=== PATIENT | male | born 1950 | race Caucasian/White ===

== ENCOUNTER 2022-06-23 | Outpatient (REF) | payer MEDICARE, SELFPAY ==
--- NOTE | ~2022-06-23 | XR_ITS ---
EXAMINATION: X-RAY BILATERAL KNEES X-RAY RIGHT KNEE CLINICAL INFORMATION: Knee pain COMPARISON: None TECHNIQUE: AP bilateral knees one view. Right knee 2 views. FINDINGS: Right knee: Right total knee arthroplasty, with usual position and alignment of the arthroplasty components. No findings suggest hardware failure. No acute periprosthetic fracture seen. Chronic ossification medial to the proximal tibia. There is marked lateral subluxation of the patella on the skyline view. No significant effusion. Left knee: Left total knee arthroplasty with usual position and alignment. There is a lucency of the bone/arthroplasty interface along the medial aspect of the femoral component of the prosthesis. This could be postsurgical. No acute fractures seen.. XR/XR knee RT 2V IMPRESSION: Right knee: Right knee arthroplasty without evidence of acute fracture or findings to suggest hardware failure. Marked lateral patellar subluxation. Left knee: Left total knee arthroplasty. Lucency at the bone/arthroplasty interface medially of the femoral component prosthesis, could be postsurgical versus related to etiology such as loosening. Correlate with prior imaging.
--- NOTE | ~2022-06-23 | XR_ITS ---
EXAMINATION: X-RAY BILATERAL KNEES X-RAY RIGHT KNEE CLINICAL INFORMATION: Knee pain COMPARISON: None TECHNIQUE: AP bilateral knees one view. Right knee 2 views. FINDINGS: Right knee: Right total knee arthroplasty, with usual position and alignment of the arthroplasty components. No findings suggest hardware failure. No acute periprosthetic fracture seen. Chronic ossification medial to the proximal tibia. There is marked lateral subluxation of the patella on the skyline view. No significant effusion. Left knee: Left total knee arthroplasty with usual position and alignment. There is a lucency of the bone/arthroplasty interface along the medial aspect of the femoral component of the prosthesis. This could be postsurgical. No acute fractures seen.. XR/XR knee standing BI IMPRESSION: Right knee: Right knee arthroplasty without evidence of acute fracture or findings to suggest hardware failure. Marked lateral patellar subluxation. Left knee: Left total knee arthroplasty. Lucency at the bone/arthroplasty interface medially of the femoral component prosthesis, could be postsurgical versus related to etiology such as loosening. Correlate with prior imaging.
== END 2022-06-23 00:01 | disposition home or self-care (01) ==
LOC: HO.HOSX
PROVIDERS: Visit Provider Orthopaedic Surgery
DX: M25.561 Pain in right knee (principal)
CPT/HCPCS: 73560; 73565

== ENCOUNTER → 2022-08-07 11:07 | Outpatient (BNVA) | payer MEDICARE, SELFPAY | PROVIDERS: PCP Internal Medicine; Visit Provider Physician Assistant | DX: Z01.818 Encounter for other preprocedural examination (principal); Z96.651 Presence of right artificial knee joint | CPT/HCPCS: 99212 ==

== ENCOUNTER 2022-08-12 06:06 | Inpatient (IN) | payer MEDICARE, SELFPAY ==
[2022-08-07 12:23] VITALS: BP 138/80; PULSE 72; RESP 20; O2SAT 95; BMI 35.2
--- NOTE | 2022-08-07 12:40 | HO.ANESPROP2 ---
Documented by User: Usha Solares NP 08/08/22 14:45 HPI - Anesthesia Eval Consult details Narrative: 71yo M for Right Knee Total Revision Medically optmized. PCP discussed with pt's print finisher and ok to proceed. Last pulmo visit 02/2022 - stable with normal PFT PMFSH Active Problems Active Problems: All Active Problems (Updated 08/07/22 @ 12:23 by Regina Hickman RN) History of total right knee replacement (Acute) Past Medical History Medical History Acid reflux Asthma Chronic bronchitis COPD (chronic obstructive pulmonary disease) Depression CALLAHAN (dyspnea on exertion) Exposure to hazardous chemical Glaucoma History of revision of total replacement of right knee joint History of urinary retention Mixed hyperlipidemia Osteoarthritis Parkinsonism Pulmonary fibrosis Urethral carcinoma Family History Family history of problems with anesthesia: No Surgical History Surgical History H/O cataract extraction H/O left knee surgery History of arthroscopy of shoulder History of bowel resection History of cholecystectomy History of pneumonectomy History of thumb surgery History of total left knee replacement History of total right knee replacement S/P partial lobectomy of lung S/P right knee arthroscopy Status post repair of hydrocele History of Problems with Anesthesia: No Social History Social History Are you a primary healthcare administrative assistant to a significant other at home: No Do you presently have visiting nurse or other home services: No Patient Tobacco Use Status: Former Tobacco user Quit Date: 2006 Tobacco use type: Cigarette Second Hand Smoke Exposure: Yes Use of substances other than those prescribed or required for medical reasons: No Have you been hit, kicked, punched, or otherwise hurt by someone within the past year? If so, by whom?: No Are you DNR?: No Advance Directives: No Advance Directives Information Provided: Yes Advance Directives on File: No Recently lost weight without trying: No Eating poorly because of decreased appetite: No Nutrition Risks: No Nutritional Risk Poor oral hygiene: No (Capped teeth) Current occupational status: retired Narrative Narrative: No recent illness. No CP. Rare SOB when >4 mets with physical work Requiring albuterol nebulizer ~2-3 times per month Meds Allergies Allergy/AdvReac Type Severity Reaction Status Date / Time Egg Derived Allergy Fainting Verified 08/07/22 12:10 ibuprofen Allergy hives Verified 08/07/22 12:10 meperidine [From Demerol] AdvReac Hallucinati Verified 08/07/22 12:42 ons Home Medications Medication Instructions Recorded Confirmed Last Taken Type albuterol sulfate 2.5 mg/3 mL 2.5 mg inhalation Q6H PRN Wheezing 06/23/22 08/06/22 08/12/22 History (0.083 %) solution for nebulization alprazolam 0.5 mg tablet 0.25 mg PO DAILY PRN Anxiety 06/23/22 08/07/22 08/11/22 History brinzolamide 1 % eye 1 drp ophthalmic (eye) BID 06/23/22 08/07/22 08/12/22 History drops,suspension (Azopt) desvenlafaxine 50 mg 75 mg PO BEDTIME 06/23/22 08/07/22 08/10/22 History tablet,extended release 24 hr netarsudil 0.02 % eye drops 1 drp ophthalmic (eye) DAILY 06/23/22 08/07/22 08/12/22 History (Rhopressa) omega-3 acid ethyl esters 1 gram 4 cap PO DAILY 06/23/22 08/07/22 08/02/22 History capsule (Lovaza) testosterone cypionate 200 mg/mL 100 mg IM Q2W 06/23/22 08/07/22 08/05/22 History intramuscular oil (Depo-Testosterone) travoprost 0.004 % eye drops 1 drp ophthalmic (eye) DAILY 06/23/22 08/07/22 08/12/22 History (Travatan Z) pantoprazole 40 mg tablet,delayed 40 mg PO BEDTIME 08/07/22 08/07/22 08/10/22 History release Exam Exam Date and Time: August 07, 2022 1240 Height,Weight and Vital Signs: Height 6 ft Weight 117.934 kg Last Vital Signs Pulse 72 08/07/22 12:23 Resp 20 08/07/22 12:23 BP 138/80 08/07/22 12:23 Pulse Ox 95 08/07/22 12:23 O2 Del Method 08/07/22 12:23 Pertinent Lab Results Pertinent Lab Results: CBC and BMP 07/2022 WNL Narrative Narrative: EKG 07/2022 NSR @ 78 Airway Mallampati Class: III TM Dist: >3cm Neck ROM: Full Loose/Missing/Broken Teeth: No (Capped right front upper, capped left front lower) Heart: RRR Lungs: CTAB Assessment and Plan Assessment Anesthesia Assessment: Anesthesia Plan Discussed and PAT Visit Final Anesthetic Review Family History of Problems with Anesthesia: No History of Problems with Anesthesia: No Documented by User: Kareem Murillo MD 08/12/22 08:59 [facility] Past Medical History Medical History Acid reflux Asthma Chronic bronchitis COPD (chronic obstructive pulmonary disease) Depression CALLAHAN (dyspnea on exertion) Exposure to hazardous chemical Glaucoma History of revision of total replacement of right knee joint History of urinary retention Mixed hyperlipidemia Osteoarthritis Parkinsonism Pulmonary fibrosis Urethral carcinoma Surgical History Surgical History H/O cataract extraction H/O left knee surgery History of arthroscopy of shoulder History of bowel resection History of cholecystectomy History of pneumonectomy History of thumb surgery History of total left knee replacement History of total right knee replacement S/P partial lobectomy of lung S/P right knee arthroscopy Status post repair of hydrocele Social History Social History Are you a primary healthcare administrative assistant to a significant other at home: No Do you presently have visiting nurse or other home services: No Patient Tobacco Use Status: Former Tobacco user Quit Date: 2006 Tobacco use type: Cigarette Second Hand Smoke Exposure: Yes Use of substances other than those prescribed or required for medical reasons: No Have you been hit, kicked, punched, or otherwise hurt by someone within the past year? If so, by whom?: No Are you DNR?: No Advance Directives: No Advance Directives Information Provided: Yes Advance Directives on File: No Recently lost weight without trying: No Eating poorly because of decreased appetite: No Nutrition Risks: No Nutritional Risk Poor oral hygiene: No (Capped teeth) Current occupational status: retired Meds Allergies Allergy/AdvReac Type Severity Reaction Status Date / Time Egg Derived Allergy Fainting Verified 08/07/22 12:10 ibuprofen Allergy hives Verified 08/07/22 12:10 meperidine [From Demerol] AdvReac Hallucinati Verified 08/07/22 12:42 ons Home Medications Medication Instructions Recorded Confirmed Last Taken Type albuterol sulfate 2.5 mg/3 mL 2.5 mg inhalation Q6H PRN Wheezing 06/23/22 08/06/22 08/12/22 History (0.083 %) solution for nebulization alprazolam 0.5 mg tablet 0.25 mg PO DAILY PRN Anxiety 06/23/22 08/07/22 08/11/22 History brinzolamide 1 % eye 1 drp ophthalmic (eye) BID 06/23/22 08/07/22 08/12/22 History drops,suspension (Azopt) desvenlafaxine 50 mg 75 mg PO BEDTIME 06/23/22 08/07/22 08/10/22 History tablet,extended release 24 hr netarsudil 0.02 % eye drops 1 drp ophthalmic (eye) DAILY 06/23/22 08/07/22 08/12/22 History (Rhopressa) omega-3 acid ethyl esters 1 gram 4 cap PO DAILY 06/23/22 08/07/22 08/02/22 History capsule (Lovaza) testosterone cypionate 200 mg/mL 100 mg IM Q2W 06/23/22 08/07/22 08/05/22 History intramuscular oil (Depo-Testosterone) travoprost 0.004 % eye drops 1 drp ophthalmic (eye) DAILY 06/23/22 08/07/22 08/12/22 History (Travatan Z) pantoprazole 40 mg tablet,delayed 40 mg PO BEDTIME 08/07/22 08/07/22 08/10/22 History release Assessment and Plan Final Anesthetic Review NPO: Yes ASA Class: III Final Preanesthetic Review: No Changes in Pt Med Stat, Meds/Allgs Chart Reviewed, Consent Obtained/Reviewed and Anes Risks/Benef Reviewed Patient Risk: Intermediate Procedure Risk: Intermediate Assessment/Block/Sedation in SS: Assess/Block/Sedation-SS Anesthetic Plan Anesthetic Plan: GA, Spinal, Regional Block and Agree w/ Assess. and Plan Disposition: Standard PACU
[2022-08-07 14:49] LABS: MRSA Nasal PCR NEGATIVE (Negative); SA Nasal PCR NEGATIVE (Negative)
[2022-08-12] VITALS (17 sets, daily range): BP systolic 110–154; BP diastolic 54–98; PULSE 67–90; RESP 8–20; TEMP 36.1–36.6; O2SAT 94–100
--- NOTE | ~2022-08-12 | XR_ITS ---
EXAMINATION: XR KNEE, RIGHT CLINICAL INFORMATION: Right total knee arthroplasty COMPARISON: 06/23/2022 TECHNIQUE: Two views of the right knee. XR/XR knee RT 2V FINDINGS AND IMPRESSION: Postoperative soft tissue swelling, soft tissues gas and anterior skin terry in place, status post patellar resurfacing with well-positioned patellar component of the total knee arthroplasty. The previously placed tibial and femoral components are appropriately positioned. No osteolysis or fracture around the hardware. Alignment is anatomic at the patellofemoral and tibiofemoral joints.
--- NOTE | 2022-08-12 06:56 | PC.NURSE ---
right knee psoriasis right knee seen in the office on the Aug they are aware
[2022-08-12 07:46] LABS: COVID-19 Test Negative (Negative); IDNOW Serial# 16C4AD1C
[2022-08-12 07:51] LABS: Hematocrit 52.8 % (42.0-52.0); Hemoglobin 17.8 g/dl (14.0-18.0)
[2022-08-12] MEDS: Lactated Ringers 1,000 ML 100 ML IVCONT ×2 (08:12→15:16)
--- NOTE | 2022-08-12 11:53 | P.BOP_ITS ---
Brief Operative Note Date of Service: 08/12/22 Pre-op diagnosis: Right knee patellar instability Post-op diagnosis: same Procedure: Patellar resurfacing with lateral release Implants: 29a [place] press fit patella Surgeon: Aneudy Lacey MD Anesthesia: GETA and regional Was an Monogram And Letter Paster used for this Procedure?: Yes Monogram And Letter Paster: Timbo Clifford Estimated blood loss (mL): 250 IV fluids (mL): 800 Pathology: none sent Condition: stable Disposition: PACU
[2022-08-12] MEDS: oxyCODONE HCl Immed Release 5 MG TABLET 10 MG PO (12:37)
[2022-08-12] MEDS: Acetaminophen 325 MG TABLET 650 MG PO (12:37)
[2022-08-12] MEDS: HYDROmorphone HCl 0.5 MG/0.5 ML SYRINGE IVPUSH ×2 (12:39→12:44)
[2022-08-12] MEDS: fentaNYL citrate/PF 100 MCG/2 ML VIAL 50 MCG IVPUSH ×2 (13:05→13:18)
[2022-08-12] MEDS: ceFAZolin Sodium/Dextrose,Iso 2 GM/50 ML PIGGYBACK IV (16:20)
--- NOTE | 2022-08-12 16:51 | HO.PM.IMCN ---
History of Present Illness Data of Consult Service Date: 08/12/22 Requesting physician: Timbo Clifford Primary Care Provider: MD DEMIAN Villela Reason for consult: medical management 71-year-old male with GERD, asthma/COPD overlap, depression, glaucoma, hyperlipidemia, parkinsonian some, pulmonary fibrosis s/p bilateral partial lower lobectomy admitted to Orthopedics for total right knee replacement with consult placed for medical management. Perioperative nursing staff reports that patient was noted to snore during his operation. He denies any history of TIFFANI but does report his states he snores though he does not feel he does. He is reporting some shortness of breath and is on 1.5 L supplemental O2. Denies any chest pain. Review of Systems Review of Systems: General: No fevers, malaise, unintentional weight loss Cardiovascular: No chest pain, palpitations, or leg edema Respiratory: No shortness of breath, wheezing, cough GI: No abdominal pain, nausea, vomiting, diarrhea, constipation, melena, hematochezia : No dysuria, hematuria, increased urinary frequency, decreased urinary output MSK: +right knee pain Neuro: No headaches, weakness, paresthesias Skin: No rashes or lesions PMF Medical History Acid reflux Asthma Chronic bronchitis COPD (chronic obstructive pulmonary disease) Depression CALLAHAN (dyspnea on exertion) Exposure to hazardous chemical Glaucoma History of revision of total replacement of right knee joint History of urinary retention Mixed hyperlipidemia Osteoarthritis Parkinsonism Pulmonary fibrosis Urethral carcinoma Family History (Updated 08/12/22 @ 16:57 by DEEPAK Chris) Father Stroke Other Carotid stenosis Surgical History H/O cataract extraction H/O left knee surgery History of arthroscopy of shoulder History of bowel resection History of cholecystectomy History of pneumonectomy History of thumb surgery History of total left knee replacement History of total right knee replacement S/P partial lobectomy of lung S/P right knee arthroscopy Status post repair of hydrocele Social History Household Members: Spouse Housing: House Are you a primary hospice spiritual care coordinator to a significant other at home: No Do you presently have visiting nurse or other home services: No Patient Tobacco Use Status: Former Tobacco user Quit Date: 2006 Tobacco use type: Cigarette Second Hand Smoke Exposure: Yes Use of substances other than those prescribed or required for medical reasons: No Have you been hit, kicked, punched, or otherwise hurt by someone within the past year? If so, by whom?: No Are you DNR?: No Advance Directives: No Advance Directives Information Provided: Yes Advance Directives on File: No Do you have thoughts of harming others: None Do you have a plan to hurt others: No Plan Recently lost weight without trying: No Eating poorly because of decreased appetite: No Nutrition Risks: No Nutritional Risk Poor oral hygiene: No Current occupational status: retired Meds Allergies Allergy/AdvReac Type Severity Reaction Status Date / Time Egg Derived Allergy Fainting Verified 08/07/22 12:10 ibuprofen Allergy hives Verified 08/07/22 12:10 meperidine [From Demerol] AdvReac Hallucinati Verified 08/07/22 12:42 ons Active Medications: Current Medications Acetaminophen (Acetaminophen 325 Mg Tablet) 650 mg PO Q6H PRN PRN Reason: Pain, Mild (Pain Scale 1-3) Albuterol Sulfate (Albuterol Sulfate (0.083%) 2.5 Mg/3 Ml Vial.Neb) 2.5 mg INHALE Q6H PRN PRN Reason: Wheezing Alprazolam (Alprazolam 0.25 Mg Tablet) 0.25 mg PO DAILY PRN PRN Reason: Anxiety Aspirin (Aspirin 325 Mg Tablet) 325 mg PO BID [facility] Celecoxib (Celecoxib 200 Mg Capsule) 200 mg PO BID [facility] Dorzolamide HCl (Dorzolamide Hcl 2 % Ophth Meche 10 Ml Drpbtl) 1 drop EYE-BOTH BID [facility] Hydromorphone HCl (Hydromorphone Hcl 0.5 Mg/0.5 Ml Syringe) 0.25 mg IVPUSH Q4H PRN; Protocol PRN Reason: Pain, Severe (Pain Scale 7-10) Lactated Ringer's (Lr) 1,000 mls @ 100 mls/hr IVCONT .Q10H KRIS Stop: 08/13/22 15:13 Last Infusion: 08/12/22 16:21 Dose: 0 mls/hr Latanoprost (Latanoprost 0.005 % Ophth Meche 2.5 Ml Drops) 1 drop EYE-BOTH DAILY [facility] Non-Formulary Medication (Desvenlafaxine) 75 mg PO BEDTIME [facility] Non-Formulary Medication (Netarsudil [Rhopressa]) 1 drop EYE-BOTH DAILY [facility] Non-Formulary Medication (Testosterone Cypionate) 100 mg IM Q14D [facility] Omeprazole (Omeprazole 20 Mg Capsule.Dr) 20 mg PO BEDTIME [facility] Ondansetron HCl (Ondansetron Hcl 4 Mg/2 Ml Vial) 4 mg IVPUSH Q8H PRN PRN Reason: Nausea and Vomiting Oxycodone HCl (Oxycodone Hcl Immed Release 5 Mg Tablet) 5 mg PO Q4H PRN PRN Reason: Pain, Moderate (Pain Scale 4-6 Oxycodone HCl (Oxycodone Hcl Er 10 Mg Tab.Er.12h) 10 mg PO BID [facility] Sodium Chloride (0.9 % Sodium Chloride Flush 3 Ml Syringe) 3 ml IVFLUSH QSHIFT [facility] Last Admin: 08/12/22 16:17 Dose: Not Given Home Medications Medication Instructions Recorded Confirmed Last Taken Type albuterol sulfate 2.5 mg/3 mL 2.5 mg inhalation Q6H PRN Wheezing 06/23/22 08/06/22 08/12/22 History (0.083 %) solution for nebulization alprazolam 0.5 mg tablet 0.25 mg PO DAILY PRN Anxiety 06/23/22 08/07/22 08/11/22 History brinzolamide 1 % eye 1 drp ophthalmic (eye) BID 06/23/22 08/07/22 08/12/22 History drops,suspension (Azopt) desvenlafaxine 50 mg 75 mg PO BEDTIME 06/23/22 08/07/22 08/10/22 History tablet,extended release 24 hr netarsudil 0.02 % eye drops 1 drp ophthalmic (eye) DAILY 06/23/22 08/07/22 08/12/22 History (Rhopressa) omega-3 acid ethyl esters 1 gram 4 cap PO DAILY 06/23/22 08/07/22 08/02/22 History capsule (Lovaza) testosterone cypionate 200 mg/mL 100 mg IM Q2W 06/23/22 08/07/22 08/05/22 History intramuscular oil (Depo-Testosterone) travoprost 0.004 % eye drops 1 drp ophthalmic (eye) DAILY 06/23/22 08/07/22 08/12/22 History (Travatan Z) pantoprazole 40 mg tablet,delayed 40 mg PO BEDTIME 08/07/22 08/07/22 08/10/22 History release Physical Exam Vital Signs and Narrative: Vital Signs: Last Vital Signs Temp 97.6 F 08/12/22 16:17 Pulse 90 08/12/22 16:17 Resp 18 08/12/22 16:17 BP 132/65 08/12/22 16:17 Pulse Ox 95 08/12/22 16:17 O2 Del Method 08/12/22 16:17 O2 Flow Rate 2 08/12/22 16:17 BMI result Body Mass Index 35.2 Constitutional - Awake and Alert, No apparent distress Eyes - PERRLA, EOMI Cardiovascular - S1S2, RRR, No edema. 2+ pedal pulses Respiratory - Normal lung expansion, Normal respiratory effort, No respiratory distress, CTA bilaterally Gastrointestinal - NT / ND; +BS; No rebound or guarding Extremities - no calf tenderness bilaterally, right knee wrapped in compression bandage Skin - Warm/Dry Neurological - Alert & oriented x3. sensation in tact Psychological - Appropriate affec Results Labs CBC and Chem 7: 08/12/22 07:46 Labs: Laboratory Results - last 24 hr 08/12/22 07:25 COVID-19 (FABIOLA) Negative COVID-19 Clin Com See Note Imaging Radiologist's Impressions: Impressions Knee X-Ray 08/12/22 13:25 FINDINGS AND IMPRESSION: Postoperative soft tissue swelling, soft tissues gas and anterior skin terry in place, status post patellar resurfacing with well-positioned patellar component of the total knee arthroplasty. The previously placed tibial and femoral components are appropriately positioned. No osteolysis or fracture around the hardware. Alignment is anatomic at the patellofemoral and tibiofemoral joints. Assessment and Plan (1) History of total right knee replacement: Status: Acute Plan 71-year-old male with GERD, asthma/COPD overlap, depression, glaucoma, hyperlipidemia, parkinsonian some, pulmonary fibrosis s/p bilateral partial lower lobectomy admitted to Orthopedics s/p right total knee replacement with consult placed for medical management. # right knee osteoarthritis s/p TKR POD #0 -Plan per orthopedics #Asthma/COPD overlap- with mild acute postoperative hypoxia following extubation -Continue supplemental O2 to maintain oximetry 92% or greater -albuterol p.r.n. # intraoperative snoring -worsened by narcotics administration -patient likely has underlying TIFFANI -recommend outpatient follow-up for pulmonary function testing # depression/anxiety -continue desvenlafaxine, Xanax # GERD -continue PPI # hypogonadism -will continue testosterone at home. Not due for dosing at this time # glaucoma -continue home eye drops Thank you for this consult. Will continue following
[2022-08-12] MEDS: HYDROmorphone HCl 0.5 MG/0.5 ML SYRINGE 0.25 MG IVPUSH (19:46)
[2022-08-12] MEDS: Celecoxib 200 MG CAPSULE PO (21:43)
[2022-08-12] MEDS: Omeprazole 20 MG CAPSULE.DR PO (21:43)
[2022-08-12] MEDS: oxyCODONE HCl ER 10 MG TAB.ER.12H PO (21:43)
[2022-08-13] MEDS: Lactated Ringers 1,000 ML 100 ML IVCONT (00:38)
[2022-08-13] MEDS: oxyCODONE HCl Immed Release 5 MG TABLET PO (00:39)
[2022-08-13 03:00] VITALS: BP 122/62; PULSE 78; RESP 18; TEMP 36.1; O2SAT 97
[2022-08-13 06:01] LABS: MANUAL DIFF FLAG NO
[2022-08-13 06:21] LABS: Basophils Percent Auto 0.1 % (0-2); Hematocrit 44.9 % (42.0-52.0); Hemoglobin 14.8 g/dl (14.0-18.0); Imm Gran Abs Auto 0.04 X10*3/uL (0.00-0.03); Imm Gran Pct Auto 0.5 % (0.0-0.4); Lymphocytes Absolute Auto 1.1 X10*3/uL (1.2-4.9); Lymphocytes Percent Auto 12.7 % (20-40); Mean Corpuscular Hemoglobin 33.3 pg (27.0-33.0); Mean Corpuscular Volume 101.1 fL (80.0-98.0); Mean Platelet Volume 9.8 fL (9.4-12.4); Monocytes Absolute Auto 0.8 X10*3/uL (0.1-1.2); Monocytes Percent Auto 9.4 % (2-11); Neutrophils Absolute Auto 6.5 x10*3/uL (2.0-8.3); Neutrophils Percent Auto 77.3 % (45-73); Platelet Count 136 X10*3/uL (160-400); Red Blood Count 4.44 X10*6/uL (4.60-5.80); Red Cell Distribution Width 12.9 % (11.0-16.0); White Blood Count 8.4 X10*3/uL (4.8-10.8)
[2022-08-13 06:24] LABS: Anion Gap 13 (12-20); Blood Urea Nitrogen 13 mg/dL (9-16); Calcium 8.4 mg/dL (8.4-10.2); Carbon Dioxide 30 mmol/L (22-29); Chloride 102 mmol/L (96-108); Creatinine Clr Calc Pharmacy 106.2; Estimated Glomerular Filt Rate > 60; Glucose Fasting 115 mg/dL (60-99); Potassium 4.7 mmol/L (3.3-5.1); Sodium 140 mmol/L (135-145)
[2022-08-13 07:00] VITALS: BP 118/59; PULSE 72; RESP 17; TEMP 36.2; O2SAT 96
--- NOTE | 2022-08-13 07:51 | P.PNOP_ITS ---
Subjective Subjective Date of Service: 08/13/22 Interval history: POD 1 s/p Right knee patella replacement No overnight events resting in bed, pain is tolerable denies cp, sob, palpitations Physical Exam Vital Signs: Vital Signs: Last Vital Signs Temp 97.1 F 08/13/22 07:00 Pulse 72 08/13/22 07:00 Resp 17 08/13/22 07:00 BP 118/59 L 08/13/22 07:00 Pulse Ox 96 08/13/22 07:00 O2 Del Method 08/13/22 07:00 O2 Flow Rate 2 08/13/22 03:00 BMI result Body Mass Index 35.2 Const: General: cooperative and no acute distress Orientation/consciousness: patient oriented x3 Resp: Effort & Inspection: normal respiratory effort and able to speak in complete sentences Cardio: Peripheral pulses: Peripheral pulses 2+ throughout Neuro: General: patient oriented x3 Extrem: Other: bandage clean dry and intact. [place]kel[place] intact. No erythema or joint effusion. Calf supple nontender. Neurovascularly intact. Procedures Date of Service Date of Service: 08/13/22 Progress Note: A&P Assessment and plan (1) History of total right knee replacement: Status: Acute Assessment and Plan: * Continue pain mgmnt * Begin Aspirin for dvt ppx * begin PT for RT TKA * Dispo planning-Pending PT eval, pain mgmnt Time Spent With Patient Time: Total time spent is greater than 50% in coordination of care (as documented) at patient's floor/unit and/or counseling patient: Quality Stroke Does the patient have a stroke diagnosis?: No VTE Prior VTE?: No VTE Risk Level:: Surgical - very high VTE Device Contraindication: N/A - Device Ordered VTE Drug Contraindication: N/A - Med Ordered
[2022-08-13 07:59] VITALS: BP 118/59; PULSE 72; O2SAT 96
--- NOTE | 2022-08-13 08:55 | MHC.CLN ---
NUTRITION EGG DERIVED ALLERGY. PATIENT STATED THAT ALLERGY IS FOR EGG DERIVED MEDICINES. NO ALLERGY TO EGGS FOOD/IN FOOD PRODUCTS. ALERTED DINING SERVICES AND NURSE.
[2022-08-13] MEDS: Aspirin 325 MG TABLET PO (09:05)
[2022-08-13] MEDS: Celecoxib 200 MG CAPSULE PO (09:05)
[2022-08-13] MEDS: oxyCODONE HCl ER 10 MG TAB.ER.12H PO (09:05)
[2022-08-13] MEDS: 0.9 % Sodium Chloride Flush 3 ML SYRINGE IVFLUSH (09:06)
--- NOTE | 2022-08-13 09:56 | MHC.CM.PN ---
IMM 08/13/22 Male 71 S/P TKA Lives w . DP vna will transport.
--- NOTE | 2022-08-13 10:50 | P.PNIM_ITS ---
Subjective Subjective Date of Service: 08/13/22 Interval History: Seen in follow-up for medical management s/p right TKR pod 1 Interval history: Patient has no complaints, pain is reasonably controlled. He has been ambulating. He is hoping to go home today. Shortness of breath has re solved and currently resting comfortably on room air . Review of Systems General: No fevers, malaise, unintentional weight loss Cardiovascular: No chest pain, palpitations, or leg edema Respiratory: No shortness of breath, wheezing, cough MSK: +right knee pain Neuro: No headaches, weakness, paresthesias Skin: No rashes or lesions Physical Exam Vital Signs: Vital Signs: Last Vital Signs Temp 97.1 F 08/13/22 07:00 Pulse 72 08/13/22 07:59 Resp 17 08/13/22 07:00 BP 118/59 L 08/13/22 07:59 Pulse Ox 96 08/13/22 07:59 O2 Del Method 08/13/22 07:00 O2 Flow Rate 2 08/13/22 03:00 BMI result Body Mass Index 35.2 Constitutional - Awake and Alert, No apparent distress Eyes - PERRLA, EOMI Cardiovascular - S1S2, RRR, No edema. 2+ pedal pulses Respiratory - Normal lung expansion, Normal respiratory effort, No respiratory distress, CTA bilaterally Gastrointestinal - NT / ND; +BS; No rebound or guarding Extremities - no calf tenderness bilaterally, right knee wrapped in compression bandage Skin - Warm/Dry Neurological - Alert & oriented x3. sensation in tact Psychological - Appropriate affect Objective Data Active Medications Acetaminophen (Acetaminophen 325 Mg Tablet) 650 mg PO Q6H PRN PRN Reason: Pain, Mild (Pain Scale 1-3) Albuterol Sulfate (Albuterol Sulfate (0.083%) 2.5 Mg/3 Ml Vial.Neb) 2.5 mg INHALE Q6H PRN PRN Reason: Wheezing Alprazolam (Alprazolam 0.25 Mg Tablet) 0.25 mg PO DAILY PRN PRN Reason: Anxiety Aspirin (Aspirin 325 Mg Tablet) 325 mg PO BID [facility] Last Admin: 08/13/22 09:05 Dose: 325 mg Documented By: ATIYA Celecoxib (Celecoxib 200 Mg Capsule) 200 mg PO BID [facility] Last Admin: 08/13/22 09:05 Dose: 200 mg Documented By: HO.WILLISK Dorzolamide HCl (Dorzolamide Hcl 2 % Ophth Meche 10 Ml Drpbtl) 1 drop EYE-BOTH BID [facility] Last Admin: 08/13/22 09:06 Dose: Not Given Documented By: ATIYA Non-Admin Reason: Med Not Available Hydromorphone HCl (Hydromorphone Hcl 0.5 Mg/0.5 Ml Syringe) 0.25 mg IVPUSH Q4H PRN; Protocol PRN Reason: Pain, Severe (Pain Scale 7-10) Last Admin: 08/12/22 19:46 Dose: 0.25 mg Documented By: JOHNATHON Lactated Ringer's (Lr) 1,000 mls @ 100 mls/hr IVCONT .Q10H [facility] Stop: 08/13/22 15:13 Last Admin: 08/13/22 00:38 Dose: 100 mls/hr Documented By: JOHNATHON Latanoprost (Latanoprost 0.005 % Ophth Meche 2.5 Ml Drops) 1 drop EYE-BOTH DAILY [facility] Last Admin: 08/13/22 09:06 Dose: Not Given Documented By: ATIYA Non-Admin Reason: Med Not Available Non-Formulary Medication (Desvenlafaxine) 75 mg PO BEDTIME [facility] Non-Formulary Medication (Netarsudil [Rhopressa]) 1 drop EYE-BOTH DAILY [facility] Non-Formulary Medication (Testosterone Cypionate) 100 mg IM Q14D [facility] Omeprazole (Omeprazole 20 Mg Capsule.Dr) 20 mg PO BEDTIME [facility] Last Admin: 08/12/22 21:43 Dose: 20 mg Documented By: JOHNATHON Ondansetron HCl (Ondansetron Hcl 4 Mg/2 Ml Vial) 4 mg IVPUSH Q8H PRN PRN Reason: Nausea and Vomiting Oxycodone HCl (Oxycodone Hcl Immed Release 5 Mg Tablet) 5 mg PO Q4H PRN PRN Reason: Pain, Moderate (Pain Scale 4-6 Last Admin: 08/13/22 00:39 Dose: 5 mg Documented By: JOHNATHON Oxycodone HCl (Oxycodone Hcl Er 10 Mg Tab.Er.12h) 10 mg PO BID [facility] Last Admin: 08/13/22 09:05 Dose: 10 mg Documented By: ATIYA Sodium Chloride (0.9 % Sodium Chloride Flush 3 Ml Syringe) 3 ml IVFLUSH QSHIFT KRIS Last Admin: 08/13/22 09:06 Dose: 3 ml Documented By: ATIYA Labs CBC & Chem 7: 08/13/22 05:19 08/13/22 05:19 Labs: Laboratory Results - last 24 hr 08/13/22 08/13/22 05:19 05:19 MCV 101.1 H MCH 33.3 H MCHC 33.0 RDW 12.9 Plt Count 136 L MPV 9.8 Immature Gran % (Auto) 0.5 H Neut % (Auto) 77.3 H Lymph % (Auto) 12.7 L Anson % (Auto) 9.4 Eos % (Auto) 0.0 Baso % (Auto) 0.1 Lymph # (Auto) 1.1 L Anson # (Auto) 0.8 Eos # (Auto) 0.0 Baso # (Auto) 0.0 Abs Immat Gran (auto) 0.04 H Absolute Neuts (auto) 6.5 Absolute Nucleated RBC 0.000 Nucleated RBC % (auto) 0.0 Anion Gap 13 Estim Creat Clear Calc 106.2 Estimated GFR > 60 Fasting Glucose 115 H Calcium 8.4 Assessment and Plan (1) History of total right knee replacement: Status: Acute Plan 71-year-old male with GERD, asthma/COPD overlap, depression, glaucoma, hyperlipidemia, parkinsonian some, pulmonary fibrosis s/p bilateral partial lower lobectomy admitted to Orthopedics s/p right total knee replacement with consult placed for medical management. # right knee osteoarthritis s/p TKR POD #1 -Plan per orthopedics #Asthma/COPD overlap- stable without exacerbation -post-op hypoxia resolved -albuterol p.r.n. # intraoperative snoring -worsened by narcotics administration -patient likely has underlying TIFFANI -recommend outpatient follow-up for sleep study # depression/anxiety -continue desvenlafaxine, Xanax # GERD -continue PPI # hypogonadism -will continue testosterone at home.? Not due for dosing at this time # glaucoma -continue home eye drops Thank you for this consult.? Will continue following Quality Stroke Does the patient have a stroke diagnosis?: No VTE Prior VTE?: No VTE Risk Level:: Surgical - very high VTE Device Contraindication: N/A - Device Ordered VTE Drug Contraindication: N/A - Med Ordered
[2022-08-13 11:00] VITALS: BP 128/62; PULSE 73; RESP 18; TEMP 36.5; O2SAT 96
--- NOTE | 2022-08-13 12:07 | HO.POSTANES ---
Post Anesthesia Evaluation Post Anesthesia Evaluation Vital Signs: Vital Signs Temp Pulse Resp BP Pulse Ox O2 Del Method O2 Flow Rate 08/13/22 11:00 97.7 F 73 18 128/62 96 Room Air 08/13/22 07:59 72 118/59 L 96 08/13/22 07:00 97.1 F 72 17 118/59 L 96 Room Air 08/13/22 03:00 97 F 78 18 122/62 97 Nasal Cannula 2 Anesthesia: Nerve Block and General Mental Status: Awake Pain Control: Satisfactory Nausea/Vomiting: None Hydration: Adequate Anesthesia-Related Issues: No Anes. Related Issues
[2022-08-13 13:26] VITALS: BP 128/62; PULSE 73; O2SAT 96
--- NOTE | 2022-08-13 15:11 | MHC.CM.PN ---
POST DC NOTE- [facility] CHRISTIANSON CALLED TO INFORM THIS QUALITY WORKER OF NEEDED PAPERWORK. ITEMS SENT. AGENCY PLANS TO SEE PATIENT TOMORROW
--- NOTE | 2022-08-18 08:08 | PM.DS ---
DS: Providers Provider Date of Service: 08/18/22 Date of admission: 08/12/22 06:06 Primary care physician: Renetta Duran MD Consults: 08/12/22 15:38 Consult to Hospitalist Routine Consulting Provider: Hospitalist Reason For Exam: medicalmanagement DS: Diagnosis Discharge Diagnosis (1) History of total right knee replacement: Status: Acute DS: Summary Hospital Course Hospital Course: The patient underwent a successful arthroplasty, was transferred to PACU and then to the floor to recover. During their stay, their vitals were stable, afebrile at 97.7. Labs were unremarkable, H/H 14.8/44.9. POD 1 he was started on ASA for DVT ppx, he also received PT services twice a day. Prior to discharge, their dressing was change, incision clean dry and intact, new Aquacel dressing applied and the plan was to be discharged home with VNA Time Spent with Patient Time attestation: Total time spent providing and/or coordinating discharge services: Discharge coordination time: Less than 30 minutes Quality: Safe Use of Opioids Does Pt have an Active Cancer Diagnosis on the Problem List?: No Quality: Stroke Does the patient have a stroke diagnosis?: No Physical Exam Vital Signs: Vital Signs: Last Vital Signs Temp 97.7 F 08/13/22 11:00 Pulse 73 08/13/22 13:26 Resp 18 08/13/22 11:00 BP 128/62 08/13/22 13:26 Pulse Ox 96 08/13/22 13:26 O2 Del Method 08/13/22 11:00 O2 Flow Rate 2 08/13/22 03:00 BMI result Body Mass Index 35.2 Const: General: cooperative and no acute distress Orientation/consciousness: patient oriented x3 Resp: Effort & Inspection: normal respiratory effort and able to speak in complete sentences Cardio: Peripheral pulses: Peripheral pulses 2+ throughout Neuro: General: patient oriented x3 Extrem: Other: bandage clean dry and intact. [place] intact. No erythema or joint effusion. Calf supple nontender. Neurovascularly intact. DS: Data Data Completed and Pending Completed studies during hospitalization [Text1]: Pending at discharge 08/12/22 11:36 Surgical [PTH] Routine Discharge Plan Discharge Anticipated Discharge Date/Time: 08/13/22 13:46 Patient Disposition: Home Health Service Discharge Diagnosis: RT TKA Referrals: Timbo Clifford PA-C [[facility]] - 2 Weeks (09/01/22 1:30 [facility] Timbo Clifford PA-C[place] Discharge Medications: New acetaminophen 325 mg Tablet 650 mg PO Q6H PRN (Reason: Pain, Mild (Pain Scale 1-3)) 30 Days Qty: 240 0RF aspirin 325 mg Tablet 325 mg PO BID 42 Days Qty: 84 0RF oxycodone 5 mg Tablet 5 mg PO Q4H PRN (Reason: Pain, Moderate (Pain Scale 4-6) 7 Days Qty: 42 0RF Rx Instructions: Partial Fill upon patient request. Continued pantoprazole 40 mg Tablet,Delayed Release (Dr/Ec) 40 mg PO BEDTIME albuterol sulfate 2.5 mg /3 mL (0.083 %) solution for nebulization 2.5 mg inhalation Q6H PRN (Reason: Wheezing) alprazolam 0.5 mg tablet 0.25 mg PO DAILY PRN (Reason: Anxiety) brinzolamide [Azopt] 1 % drops,suspension 1 drp ophthalmic (eye) BID desvenlafaxine 50 mg tablet extended release 24 hr 75 mg PO BEDTIME Rhopressa 0.02 % drops 1 drp ophthalmic (eye) DAILY travoprost [Travatan Z] 0.004 % drops 1 drp ophthalmic (eye) DAILY omega-3 acid ethyl esters [Lovaza] 1 gram capsule 4 cap PO DAILY testosterone cypionate [Depo-Testosterone] 200 mg/mL oil 100 mg IM Q2W No Action (DME) Knee Support Brace Misc See Rx Instructions .MEDSUPPLY Qty: 1 0RF Rx Instructions: Reaction Knee brace Discharge Orders: Discharge Order (Routine); Ordered 08/13/22 Ordered By: Timbo Clifford Diet: Regular diet Activity on Discharge: Use cane or walker Stand Alone Forms: Patient Portal Discharge page Care Plan Goals: Physical Therapy Pain management DVT prophylaxis Health Concerns: Intraoperative snoring concerning for obstructive sleep apnea which is a serious condition causing snoring and periods of apnea, or non breathing. Untreated this can sleep to serious health complications including uncontrolled hypertension, atrial fibrillation, stroke, and even . Plan of Treatment: Recommend weight loss and outpatient sleep study to diagnose suspected sleep apnea Assessment: Physical Therapy for Total knee arthroplasty: WBAT, gait training, ROM 0-12, quad strength Limit stair climbing No showering, no tub bath-keep dressing clean, dry and intact No driving x6 weeks Continue Aspirin twice a day x 6 weeks Follow up with [facility] [place] 2 [place] Discharge Date/Time: 08/13/22 14:15
--- NOTE | 2022-08-18 08:10 | W.MHC.F2F ---
Service Date Service Date: 08/18/22 Encounter Date of encounter: 08/13/22 Reasons for Services Signs and symptoms assessed: Right knee pain, swelling, diff with ambulation Reason for physical therapy: home safety and mobility, therapeutic exercises, restore joint function, gait/transfer training, ADL training and energy conservation Reason for occupational therapy: home safety and mobility, therapeutic exercises, restore joint function, gait/transfer training, ADL training and energy conservation Overseeing Care: Aneudy Lacey Homebound: Leaving the home is medically contraindicated at this time without the asist of a device and/or another person due th the listed conditions above and below. Reason homebound: unsteady gait / fall risk, pain with ambulation, pain with transfers, non-weight bearing and unable to drive Homebound supporting statement: Pt. is considered home bound due to recent surgery. Unable to drive, poor balance, poor gait mechanics. Certification: Based on the above findings, I certify that this patient is confined to the home and needs intermittent long-term care, physical therapy and/or speech therapy, or continues to need occupational therapy. The patient is under my care, and I have initiated the establishment of the plan of care. The patient will be followed by a physician who will periodically review the plan of care.
--- NOTE | 2022-08-27 10:36 | W.PM.OPN ---
Operative Note Operative Note Date of Service: 08/12/22 Narrative: Date of Service: 08/12/22 Pre-op diagnosis: Right knee patellar instability Post-op diagnosis: same Procedure: Patellar resurfacing with lateral release Implants: 29a Browns press fit patella Surgeon: Aneudy Lacey MD Anesthesia: GETA and regional Was an Airport Refueling Handler used for this Procedure?: Yes Airport Refueling Handler: Timbo Clifford Estimated blood loss (mL): 250 IV fluids (mL): 800 Pathology: none sent Condition: stable Disposition: PACU Procedure in detail: The patient was brought to the operating room and prepped and draped in standard sterile fashion. A time-out was called to identify proper site proper procedure proper surgeon and IV antibiotics were administered. 1 g of IV tranexamic acid was administered. I began by making a midline incision to the retinaculum and performed a medial parapatellar arthrotomy. The patella was translated laterally and the knee was flexed up.The patella was chronically subluxed laterally. I extended the arhtrotimy proximally and released the infrapatellar fibrotic tissue and was able to partially invert the patella. It was defromed and eburnated. I performed a full lateral release including fibers of the ITB and the capsule. I then removed 1 cm of undersurface I then medialixed a small patella (29a) and took the knee through a ROM using a trial button. I was satisfied with the stability and tracking. The final patella was press fit and a 3 minutes iodine soak with local TXA was performed. The knee was then closed with a running Quill suture, a 3 0 Vicryl and terry on the skin. Patient was then placed in sterile dressing and brought to recovery room in stable condition there were no known complications.
== END 2022-08-13 14:15 | disposition home health service (06) | DRG 470 ==
LOC: HO.SSSA 06:07 → HO.S3 15:33
PROVIDERS: Physician Assistant; Admitting Provider Orthopaedic Surgery; PCP Internal Medicine; Visit Provider Orthopaedic Surgery
PROC: 0SRC0NA Replacement of Right Knee Joint with Patellofemoral Synthetic Substitute, Uncemented, Open Approach (ICD-10-PCS; CPT 27487; principal; 2022-08-12 09:40)
DX: M23.51 Chronic instability of knee, right knee (principal); K21.9 Gastro-esophageal reflux disease without esophagitis; J44.9 Chronic obstructive pulmonary disease, unspecified; E78.2 Mixed hyperlipidemia; G20 Parkinson's disease; G47.33 Obstructive sleep apnea (adult) (pediatric); F32.A Depression, unspecified; F41.9 Anxiety disorder, unspecified; H40.9 Unspecified glaucoma; Z90.2 Acquired absence of lung [part of]; Z20.822 Contact with and (suspected) exposure to COVID-19; Z87.891 Personal history of nicotine dependence; Z88.5 Allergy status to narcotic agent; Z88.6 Allergy status to analgesic agent; Z79.82 Long term (current) use of aspirin; Z79.899 Other long term (current) drug therapy
CPT/HCPCS: 36415; 73560; 80048; 85014; 85018; 85025; 86850; 86900; 86901; 87635; 87640; 87641; 88305; 88311; 97110; 97116; 97162; C1776; J0330; J0461; J0690; J1100; J1170; J2250; J2370; J2405; J2550; J2795; J3010

== ENCOUNTER → 2022-09-26 13:04 | Outpatient (BNVA) | payer MEDICARE, SELFPAY | PROVIDERS: PCP Internal Medicine; Visit Provider Physician Assistant | DX: Z13.89 Encounter for screening for other disorder (principal) ==

== ENCOUNTER 2022-11-07 08:55 | Outpatient (REF) | payer MEDICARE, SELFPAY ==
--- NOTE | ~2022-11-07 | XR_ITS ---
EXAMINATION: XR AP UPRIGHT KNEE, BILATERAL XR KNEE, RIGHT CLINICAL INFORMATION: Pain in the knee. COMPARISON: X-rays of the right knee 08/12/2022. X-ray the right knee June 2022. TECHNIQUE: AP upright of both knees. Lateral and patella view of the right knee FINDINGS: Right Knee: There is a total knee arthroplasty in place. The components are in the usual position and are unchanged. The patella appears laterally positioned or subluxed but less than preoperatively. There is no periprosthetic fracture or surrounding abnormal lucency. There is no effusion. The surrounding soft tissues are normal. Left Knee Limited: There is a total knee arthroplasty in place. The components are in the usual position and are unchanged. There is no periprosthetic fracture or surrounding abnormal lucency. There is no effusion. The surrounding soft tissues are normal. XR/XR knee standing BI IMPRESSION: RIGHT KNEE: Right total knee arthroplasty without complication by x-ray. Of note; the patella appears somewhat laterally positioned or subluxed on the patellar view but less than that noted on the preoperative x-ray performed June 2022. LEFT KNEE LIMITED: Left total knee arthroplasty without change or abnormality.
--- NOTE | ~2022-11-07 | XR_ITS ---
EXAMINATION: XR AP UPRIGHT KNEE, BILATERAL XR KNEE, RIGHT CLINICAL INFORMATION: Pain in the knee. COMPARISON: X-rays of the right knee 08/12/2022. X-ray the right knee June 2022. TECHNIQUE: AP upright of both knees. Lateral and patella view of the right knee FINDINGS: Right Knee: There is a total knee arthroplasty in place. The components are in the usual position and are unchanged. The patella appears laterally positioned or subluxed but less than preoperatively. There is no periprosthetic fracture or surrounding abnormal lucency. There is no effusion. The surrounding soft tissues are normal. Left Knee Limited: There is a total knee arthroplasty in place. The components are in the usual position and are unchanged. There is no periprosthetic fracture or surrounding abnormal lucency. There is no effusion. The surrounding soft tissues are normal. XR/XR knee RT 2V IMPRESSION: RIGHT KNEE: Right total knee arthroplasty without complication by x-ray. Of note; the patella appears somewhat laterally positioned or subluxed on the patellar view but less than that noted on the preoperative x-ray performed June 2022. LEFT KNEE LIMITED: Left total knee arthroplasty without change or abnormality.
== END 2022-11-07 08:56 | disposition home or self-care (01) ==
LOC: HO.HOSX 08:55
PROVIDERS: Visit Provider Orthopaedic Surgery
DX: M25.561 Pain in right knee (principal); Z96.651 Presence of right artificial knee joint
CPT/HCPCS: 73560; 73565; 99212